=== PATIENT | male | born 1995 | race Caucasian/White ===

== ENCOUNTER → 2021-12-26 10:35 | Outpatient (CLI) | payer OTHER, SELFPAY ==
--- NOTE | ~2021-12-26 | XR_ITS ---
XR foot RT min 3V DATE: 12/26/2021 10:52 INDICATION: Right foot pain. Injury one week ago playing soccer TECHNIQUE: 4 views COMPARISON: None FINDINGS: There is a comminuted fracture of the base very proximal shaft of the fifth metatarsal bone without significant displacement or angulation. There is hallux valgus and bunion deformity. No fracture or dislocation, periosteal reaction or bone destruction. IMPRESSION: Virtually nondisplaced fracture of the base and proximal shaft of the fifth metatarsal Reviewed, dictated and finalized at location A. [employer] IMPRESSION: Virtually nondisplaced fracture of the base and proximal shaft of t he fifth metatarsal
== END ==
PROVIDERS: PCP Family Medicine; Visit Provider Family Medicine
DX: M79.671 Pain in right foot (principal); S92.354A Nondisplaced fracture of fifth metatarsal bone, right foot, initial encounter for closed fracture
CPT/HCPCS: 73630